=== PATIENT | male | born 2000 | race Caucasian/White ===

== ENCOUNTER 2020-02-05 10:38 | Emergency (ER) | payer OTHER ==
[2020-02-05] MEDS ORDERED: Bupivacaine 0.5% 10 ML SDV INJECT ONE (10:54)
--- NOTE | 2020-02-05 10:55 | EDM.PDOC ---
<James Griffitsh - Last Filed: 02/05/20 12:13> ED HPI GENERAL MEDICAL PROBLEM - General Chief Complaint: Skin Complaint Stated Complaint: NAIL IN THUMB Time Seen by Provider: 02/05/20 10:40 - History of Present Illness INITIAL COMMENTS - FREE TEXT/NARRATIVE: Present this morning after having a nail (3-inch) penetrate left thumb while using a nail gun this morning. Patient is right-hand dominant. Patient proceeded to ED once injury was sustained. Patient complaining of pain, especially with movement. Tetanus up-to-date; received update 2 years prior. Denies any fevers, chills, body aches. Left Finger-Thumb Pain Score (Numeric/FACES): 9 - Related Data Allergies Allergy/AdvReac Type Severity Reaction Status Date / Time erythromycin base Allergy Other Verified 02/05/20 10:50 Home Meds: Home Meds Ciprofloxacin [Ciprofloxacin HCl] 500 mg PO BID 7 Days #14 tab 02/05/20 [Rx] Mupirocin Oint [Bactroban Oint] 22 gm .XX TID 10 Days #1 tube 02/05/20 [Rx] ED ROS GENERAL - Review of Systems Review Of Systems: See Below Constitutional: Reports: No Symptoms Respiratory: Reports: No Symptoms Cardiovascular: Reports: No Symptoms GI/Abdominal: Reports: No Symptoms Musculoskeletal: Reports: No Symptoms Skin: Reports: Other (left thumb :retained FB/nail..no swelling and or ecchym osis noted surrounding nail itself ) Neurological: Reports: No Symptoms Psychiatric: Reports: No Symptoms ED EXAM, SKIN/RASH Exam: See Below Exam Limited By: No Limitations General Appearance: Alert Respiratory/Chest: No Respiratory Distress Cardiovascular: Normal Peripheral Pulses Extremities: Other (Left thumb: FB/steel nail penetrating volar pad and exiting at lateral aspect just lateral to nailbed...entrance/exit wound circular 2- 3mm....right ahnd 3rd digit distal nail avulsed w. no skin chenges. sensation and ROM intact ) Skin: Other (left foot: 3rd digit mild tenderness, passive ROM intact ....1 mm healing wound noted w. no active bleeding and or surrounding erythema..... tenderness noted at base of 3rd digit...no obvious sign of infection at this time ) Course - Vital Signs Text/Narrative:: Foreign body removed : repeat x-ray performed Departure - Departure Disposition: Home, Self-Care 01 Clinical Impression: Foreign body in skin of finger, Nail wound of left foot - Discharge Information *PRESCRIPTION DRUG MONITORING PROGRAM REVIEWED*: No *COPY OF PRESCRIPTION DRUG MONITORING REPORT IN PATIENT BRIAAN: No Prescriptions: Mupirocin Oint [Bactroban Oint] 22 gm .XX TID 10 Days #1 tube Ciprofloxacin [Ciprofloxacin HCl] 500 mg PO BID 7 Days #14 tab Referrals: PCP,None [Primary Care Provider] - Forms: ED Department Discharge Care Plan Goals: Follow up with PCP for wound check in 48 hours - Problem List Review Problem List Initiated/Reviewed/Updated: Yes <Gerald Nicholson - Last Filed: 02/05/20 12:45> Course - Vital Signs Text/Narrative:: Attending physician note I have seen and evaluated the patient with the Resident. 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 Unclear if it is in the bone or not. He also reports that he stepped on a nail on the left foot that went through his shoe yesterday. He gave self-care at home for this but would like us to look at it. He also complains that on his right ring finger he has a partially avulsed nail and an injury there. He wants us to look at that also. ROS: Reviewed and agree Focused Exam: VITAL SIGNS: Reviewed. GENERAL: Awake, conversant, GCS 15, appears to be in acute pain HEAD: No visible signs of trauma EYES: Pupils equal, EOM grossly intact EARS: Hearing grossly intact. MOUTH: No visible lesions NECK: Appears supple CHEST: Breathing comfortably, clear lung sounds CARDIAC: Regular rhythm ABDOMEN: Soft, nontender, benign exam NEUROLOGIC EXAM: Awake and Alert, non-focal SKIN: No visible rashes EXTREMITIES: There is a nail in a C-shaped going through the left thumb. There is a small nail avulsion of the right ring finger distally. There is a puncture wound on the sole of the left foot without evidence of foreign body. Distal neurovascular function is intact in all extremities. VASCULAR: Appears well perfused Assessment & Plan: 1. Removal foreign body from the left thumb 2. Wound care for ring finger partial avulsion of nail 3. Wound care for the puncture wound that went through his shoe on his left foot Given that he has a puncture wound through his shoe he will require antipseu domonal coverage. We will given informed consent decision-making process for fluoroquinolone antibiotics with the patient. Procedure note: Removal of foreign body left thumb After informed consent was obtained a timeout was performed After adequate anesthesia was obtained blocking the medial and radial sections at the base of the thumb to provide complete anesthesia of the thumb. This was performed with approximately a total of 10 mL's of bupivacaine 0.5%. After adequate anesthesia was obtained the head of the nail was removed with a ring cutter. This type of nail serrated and must be passed through the direction of travel. This required removal of the head of the nail. After cleaning with chlorhexidine solution the nail was passed through. X-rays show that there is no bony involvement. After the nail was removed from the tissue of the pad of the thumb the patient was taken to the sink and had copious irrigation with high-pressure water at the sink along with scrubbing with a surgical scrubbing pad and chlorhexidine soap. At this time we also cleaned to the wound on the partially avulsed nail bed of the right ring finger. Complications none Procedure note: Wound care foot puncture wound left foot After informed consent was obtained the area was cleansed copiously and irrigated with water and a chlorhexidine soap solution. Complications none Discharged with a fluoroquinolone antibiotic Mupirocin ointment topically for the wounds Wound check with primary care doctor in 48 hours or sooner. Oral pain medication with Tylenol and an NSAID Return immediately for signs of infection, fever, worsening pain or any other concerns Last Recorded V/S: Last Vital Signs Temp 96.7 F L 02/05/20 10:51 Pulse 60 02/05/20 10:51 Resp 17 02/05/20 10:51 BP 141/78 H 02/05/20 10:51 Pulse Ox 99 02/05/20 10:51 - Orders/Labs/Meds Orders: Active Orders 24 hr Category Date Time Status Foot 2V Lt [CR] Stat Exams 02/05/20 11:48 Taken Hand 2V Lt [CR] Stat Exams 02/05/20 11:49 Taken Meds: Medications Discontinued Medications Generic Name Dose Route Start Last Admin Trade Name Freq PRN Reason Stop Dose Admin Bupivacaine HCl 10 ml 02/05/20 10:54 02/05/20 11:10 Sensorcaine-Mpf 0.5% INJECT 02/05/20 10:55 10 ml ONETIME ONE Administration Ciprofloxacin 500 mg 02/05/20 11:48 02/05/20 12:05 Ciprofloxacin Hcl PO 02/05/20 11:49 500 mg ONETIME ONE Administration Cefazolin Sodium/Dextrose 2 gm 50 mls @ 100 mls/hr 02/05/20 11:27 02/05/20 12:05 / Premix IV 02/05/20 11:56 100 mls/hr ONETIME ONE Administration Ketorolac Tromethamine 15 mg 02/05/20 12:07 02/05/20 12:11 Toradol IVPUSH 02/05/20 12:08 15 mg ONETIME ONE Administration Departure - Departure Time of Disposition: 12:45 Sepsis Event Note (ED) - Focused Exam Vital Signs: Vital Signs Temp Pulse Resp BP Pulse Ox 02/05/20 10:51 96.7 F L 60 17 141/78 H 99
[2020-02-05] MEDS ORDERED: ceFAZolin 2 GM in Premix Bag 1 BAG IV ONE (11:27)
--- NOTE | 2020-02-05 11:31 | CR ---
Left thumb: 4 views left thumb were obtained. Foreign body is identified within the distal thumb. This appears within the soft tissues. No discrete fracture is appreciated. Impression: 1. Soft tissue foreign body within the distal thumb. 2. No acute bony abnormality is appreciated. Diagnostic code #3 This report was dictated in MDT
[2020-02-05] MEDS ORDERED: Ciprofloxacin 500 MG Tab PO ONE (11:48)
--- NOTE | 2020-02-05 11:52 | PCM.PRNOTE ---
- Free Text/Narrative Note: Left hand foreign body removal: Left nondominant hand, first digit, 3 inch steel nail with serrated end : entering through volar aspect of distal end of digit ; then exiting at the lateral aspect of thumb just proximal to nail bed Risk and benefits explained to patient including site infection, paralysis and retained foreign body. Area cleaned and prepped with chlorhexidine Bupivacaine injected into base of first digit volar aspect with radial and median nerve block achieved. Flattened portion of the nail removed with ring cutter secondary to serrated end of nail itself. Once digital block achieved with sufficient anesthesia (total 8-9 cc of Bupivicaine 0.5%) : Forceps were used ; FB removed in the opposite direction nail entered into digit. Patient tolerated procedure well. Thereafter wound was cleaned thoroughly with greater than 1 L of tap water, chlorhexidine. Wound was scrubbed sufficiently with chlorhexidine and sterile gauze applied to area
[2020-02-05] MEDS ORDERED: Ketorolac 30 MG/ML SDV IVPUSH ONE (12:07)
--- NOTE | 2020-02-05 12:44 | CR ---
Left hand: 3 views of left hand were obtained. Comparison: Previous thumb study performed earlier on the same day (11:02 AM). Previous foreign body has been removed. Minimal amount of air is seen within the distal thumb. No fracture or other abnormality is appreciated. Impression: 1. Previous foreign body has been removed. Minimal amount of residual soft tissue air. 2. 2 view left hand study is otherwise unremarkable. Diagnostic code #2 This report was dictated in MDT
--- NOTE | 2020-02-05 13:08 | CR ---
Left foot: 2 views of the left foot were obtained. Comparison: No previous foot exam. Joint spaces are preserved. No discrete fracture or other bony abnormality is appreciated. Impression: 1. Nothing acute is seen on 2 view left foot exam. Diagnostic code #1 Study was dictated in MDT
== END 2020-02-05 12:56 | disposition home or self-care (01) ==
LOC: MW.ED 10:38
DX: S61.042A Puncture wound with foreign body of left thumb without damage to nail, initial encounter (principal); S91.332A Puncture wound without foreign body, left foot, initial encounter; S61.304A Unspecified open wound of right ring finger with damage to nail, initial encounter; Z88.1 Allergy status to other antibiotic agents; W29.4XXA Contact with nail gun, initial encounter; Y92.89 Other specified places as the place of occurrence of the external cause; Y99.0 Civilian activity done for income or pay
CPT/HCPCS: 64450; 73120; 73620; 96365; 96375; 99283; A9270; J0690; J1885; J3490